=== PATIENT | female | born 1965 | race Caucasian/White ===

== ENCOUNTER 2021-05-08 16:08 | Outpatient (REF) | payer MEDICARE, MEDICAID, SELFPAY ==
[2021-05-09 08:41] LABS: Syphilis Screen Nonreactive (Nonreactive)
[2021-05-09 09:00] LABS: HBS Num1 1.44 mIU/mL (0-7.99); HBc Num1 0.03 S/CO (0.00-0.79); HBsAGNum1 1.27 S/CO (0.00-0.99); HIV AB/AG Nonreactive (Nonreactive); HIV Num 1 0.08 S/CO (0.00-0.99); Hepatitis A Antibody IgM 0.14 Index (0-0.79); Hepatitis B Core Antibody Nonreactive (Nonreactive); ~HepC Num1 0.09 S/CO (0.00-0.79); ~Hepatitis A Antibody IgM Nonreactive (Nonreactive); ~Hepatitis B Surface Antibody NONREACTIVE (Nonreactive); ~Hepatitis C Antibody Nonreactive (Nonreactive)
[2021-05-09 10:33] LABS: CT PCR NOT DETECTED (Not Detect.); NG PCR NOT DETECTED (Not Detect.)
[2021-05-09 10:40] LABS: HBsAGNum2 Reactive; HBsAGNum3 Reactive; Hepatitis B Surface Antigen Retest CNFM (Negative)
[2021-05-09 12:08] LABS: Neutralization % -10; R2 S/CO 1.12 S/CO
[2021-05-09 12:09] LABS: Hepatitis B Surface Antigen Rep Reactive (Negative)
== END 2021-05-08 16:09 | disposition home or self-care (01) ==
LOC: HO.MANLDS 16:08
PROVIDERS: PCP Physician Assistant; Visit Provider Physician Assistant
DX: Z11.3 Encounter for screening for infections with a predominantly sexual mode of transmission (principal); Z11.4 Encounter for screening for human immunodeficiency virus [HIV]; Z01.84 Encounter for antibody response examination
CPT/HCPCS: 86704; 86706; 86709; 86780; 86803; 87340; 87389; 87491; 87591

== ENCOUNTER 2023-01-20 10:46 | Outpatient (REF) | payer MEDICARE, MEDICAID, SELFPAY ==
[2023-01-20 14:28] LABS: MANUAL DIFF FLAG NO
[2023-01-20 14:42] LABS: Basophils Percent Auto 0.7 % (0-2); Eosinophils Absolute Auto 0.2 X10*3/uL (0.0-0.4); Eosinophils Percent Auto 3.9 % (0-4); Hematocrit 40.4 % (37.0-47.0); Hemoglobin 13.3 g/dl (12.0-16.0); Lymphocytes Percent Auto 44.7 % (20-40); Mean Corpuscular HGB Conc 32.9 g/dl (31.0-35.0); Mean Corpuscular Hemoglobin 29.9 pg (27.0-33.0); Mean Corpuscular Volume 90.8 fL (80.0-98.0); Mean Platelet Volume 11.5 fL (9.4-12.3); Monocytes Absolute Auto 0.4 X10*3/uL (0.1-1.2); Monocytes Percent Auto 9.6 % (2-11); Neutrophils Absolute Auto 1.9 x10*3/uL (2.0-8.3); Neutrophils Percent Auto 41.1 % (45-73); Platelet Count 193 X10*3/uL (160-400); Red Blood Count 4.45 X10*6/uL (4.20-5.50); White Blood Count 4.6 X10*3/uL (4.8-10.8)
[2023-01-20 15:00] LABS: Alanine Aminotransferase 21 U/L (0-31); Albumin Level 4.2 g/dL (3.5-5.0); Alkaline Phosphatase 75 U/L (39-117); Anion Gap 13 (12-20); Aspartate Amino Transferase 20 U/L (5-31); Bilirubin Total 0.4 mg/dL (0.0-1.0); Blood Urea Nitrogen 24 mg/dL (9-16); Calcium 9.4 mg/dL (8.4-10.2); Carbon Dioxide 28 mmol/L (22-29); Chloride 102 mmol/L (96-108); Cholesterol 198 mg/dL; Estimated Glomerular Filt Rate > 60; Glucose Random 85 mg/dL (60-115); HDL Cholesterol 68 mg/dL; Iron 69 mcg/dL (30-160); LDL Cholesterol Calculated 118 mg/dl; Percent Iron Saturation 21 % (15-50); Potassium 4.6 mmol/L (3.3-5.1); Sodium 138 mmol/L (135-145); Total Iron Binding Capacity 332 mcg/dL (228-428); Total Protein 6.7 g/dL (6.5-8.0); Triglycerides 64 mg/dL; Unsaturated Iron Binding 263 ug/dL
[2023-01-20 15:29] LABS: Ferritin 58 ng/mL (10-250); Folate 11.7 ng/mL (> or = 4.0); Vitamin B12 1052 pg/mL (200-900)
== END 2023-01-20 10:47 | disposition home or self-care (01) ==
LOC: HO.MANLDS 10:46
PROVIDERS: Visit Provider Physician Assistant
DX: Z00.00 Encounter for general adult medical examination without abnormal findings (principal); D51.3 Other dietary vitamin B12 deficiency anemia; E78.00 Pure hypercholesterolemia, unspecified
CPT/HCPCS: 36415; 80053; 80061; 82607; 82728; 82746; 83540; 85025

== ENCOUNTER 2024-12-10 10:28 | Outpatient (REF) | payer MEDICARE, MEDICAID, SELFPAY ==
[2024-12-10 13:07] LABS: MANUAL DIFF FLAG NO
[2024-12-10 13:46] LABS: Estimated Average Glucose 103 mg/dL; Hemoglobin A1c % 5.2 % (<6.0)
[2024-12-10 13:51] LABS: Basophils Absolute Auto 0.1 X10*3/uL (0.0-0.2); Basophils Percent Auto 0.9 % (0-2); Eosinophils Absolute Auto 0.3 X10*3/uL (0.0-0.4); Eosinophils Percent Auto 4.5 % (0-4); Hematocrit 39.9 % (37.0-47.0); Hemoglobin 13.1 g/dl (12.0-16.0); Imm Gran Abs Auto 0.01 X10*3/uL (0.00-0.03); Imm Gran Pct Auto 0.2 % (0.0-0.4); Lymphocytes Absolute Auto 2.9 X10*3/uL (1.2-4.9); Lymphocytes Percent Auto 50.8 % (20-40); Mean Corpuscular HGB Conc 32.8 g/dl (31.0-35.0); Mean Corpuscular Hemoglobin 29.6 pg (27.0-33.0); Mean Corpuscular Volume 90.3 fL (80.0-98.0); Mean Platelet Volume 10.9 fL (9.4-12.3); Monocytes Absolute Auto 0.5 X10*3/uL (0.1-1.2); Monocytes Percent Auto 9.4 % (2-11); Neutrophils Percent Auto 34.2 % (45-73); Platelet Count 213 X10*3/uL (160-400); Red Blood Count 4.42 X10*6/uL (4.20-5.50); Red Cell Distribution Width 13.2 % (11.0-16.0); White Blood Count 5.7 X10*3/uL (4.8-10.8)
[2024-12-10 14:24] LABS: Alanine Aminotransferase 24 U/L (0-31); Alkaline Phosphatase 79 U/L (39-117); Anion Gap 11 (12-20); Aspartate Amino Transferase 24 U/L (5-31); Bilirubin Total 0.3 mg/dL (0.0-1.0); Blood Urea Nitrogen 14 mg/dL (9-16); Calcium 9.3 mg/dL (8.4-10.2); Carbon Dioxide 29 mmol/L (22-29); Chloride 105 mmol/L (96-108); Cholesterol 194 mg/dL (<200); Estimated Glomerular Filt Rate > 60; Glucose Random 89 mg/dL (60-115); HDL Cholesterol 69 mg/dL (>40); Iron 67 mcg/dL (30-160); LDL Cholesterol Calculated 106 mg/dL (<100); Percent Iron Saturation 19 % (15-50); Potassium 4.5 mmol/L (3.3-5.1); Sodium 140 mmol/L (135-145); Total Iron Binding Capacity 353 mcg/dL (228-428); Total Protein 6.8 g/dL (6.5-8.0); Triglycerides 95 mg/dL (<150); Unsaturated Iron Binding 286 ug/dL
[2024-12-10 14:43] LABS: Ferritin 20 ng/mL (10-250); Vitamin B12 1238 pg/mL (200-900)
[2024-12-17 14:58] LABS: VITAMIN D (1,25 OH) D3 34 pg/mL; Vit D (1,25-Dihydroxy) Total 34 pg/mL (18-72); Vitamin D (1,25 OH) D2 <8 pg/mL
== END 2024-12-10 10:29 | disposition home or self-care (01) ==
LOC: HO.MANLDS 10:28
PROVIDERS: Visit Provider Physician Assistant
DX: Z00.00 Encounter for general adult medical examination without abnormal findings (principal); Z13.1 Encounter for screening for diabetes mellitus; Z13.6 Encounter for screening for cardiovascular disorders
CPT/HCPCS: 36415; 80053; 80061; 82607; 82652; 82728; 83036; 83540; 85025